=== PATIENT | female | born 1985 | race Caucasian/White ===

== ENCOUNTER 2018-04-25 00:13 | Inpatient (IN) | payer BC, OTHER ==
[2018-04-25] MEDS ORDERED: Sodium Citrate/Citric Acid* 15 ML UDC ONE (07:18)
[2018-04-25] MEDS ORDERED: ceFOXitin 2 GM IVPREMIX* 2 GM/50 ML BAG ONE (07:19)
[2018-04-25] MEDS ORDERED: Morphine PF AMP (0.5MG/ML)* 5 MG/10 ML AMP ONE (08:44)
[2018-04-25] MEDS ORDERED: Bupivacaine-MPF SPINAL* 7.5 MG/ML - 2ML AMP ONE (08:44)
[2018-04-25] MEDS ORDERED: Lidocaine 1%* 5 ML VIAL ONE (08:47)
[2018-04-25] MEDS ORDERED: OXYTOCIN* 10 UNITS/ML 1 ML VIAL ONE (09:26)
[2018-04-25] MEDS ORDERED: EPHEDrine (Pressors)* 50 MG/ML VIAL ONE (09:26)
[2018-04-25] MEDS ORDERED: Atropine 1MG/ML INJ* 1 ML VIAL ONE (09:26)
[2018-04-25] MEDS ORDERED: Phenylephrine INJ* 10 MG/ML 1 ML VIAL (10 MG) ONE (09:39)
[2018-04-25] MEDS ORDERED: Ketorolac INJ* 30 MG/ML 1 ML VIAL ONE (09:41)
[2018-04-25] MEDS ORDERED: Scopolamine 1.5 mg* PATCH TRANSDERM PRN (09:47)
[2018-04-25] MEDS ORDERED: Naloxone* 0.4 MG/ML 1 ML VIAL IV PRN ×2 (09:47→09:50)
[2018-04-25] MEDS ORDERED: Nalbuphine* 10 MG/ML 1 ML VIAL IV PRN (09:47)
[2018-04-25] MEDS ORDERED: Ketorolac INJ* 30 MG/ML 1 ML VIAL IV PRN (09:47)
[2018-04-25] MEDS ORDERED: Ondansetron INJ* 2 MG/ML VIAL IV PRN ×2 (09:47→09:50)
[2018-04-25] MEDS ORDERED: diPHENhydraMINE IV* 50 MG/ML 1 ml VIAL (BENADRYL) IV PRN (09:47)
[2018-04-25] MEDS ORDERED: oxyCODONE/Acetamin 5/325 MG* TAB PO PRN (09:47)
[2018-04-25] MEDS ORDERED: DiMENhydriNATE IV* 50 MG/ML VIAL IV PUSH PRN (09:47)
[2018-04-25] MEDS ORDERED: fentaNYL* 50 MCG/ML 2 ML VIAL (100 MCG VIAL) IV PRN (09:50)
[2018-04-25] MEDS ORDERED: Dibucaine 1% 28.35 GM TUBE PR PRN (11:34)
[2018-04-25] MEDS ORDERED: Zolpidem TAB* 5 MG PO PRN (11:34)
[2018-04-25] MEDS ORDERED: Glycerin ADULT SUPP PR PRN (11:34)
[2018-04-25] MEDS ORDERED: Witch Hazel PAD* JAR TOPICAL PRN (11:34)
[2018-04-25] MEDS: Docusate CAP* 100 MG PO SCH ×2 (14:26→20:09)
[2018-04-25] MEDS: Simethicone TAB* 80 MG TAB.CHEW PO SCH ×3 (14:26→20:09)
--- NOTE | 2018-04-25 16:37 | OP ---
DATE OF OPERATION: 04/25/18 -ROOM #105 DATE OF : 81 SURGEON: Hayley Granados MD. BINDER LOCKSTITCH: Charleen Nath CNM ANESTHESIA: Spinal. PRE-OP DIAGNOSIS: Intrauterine gestation at 39+ weeks gestational age, prior section. POST-OP DIAGNOSIS: Intrauterine gestation at 39+ weeks gestational age, prior section. OPERATIVE PROCEDURE: Repeat lower transverse section. ESTIMATED BLOOD LOSS: 800 mL. FLUIDS: Crystalloid. FINDINGS: Normal-appearing uterus, ovaries, and tubes. Male , weight 8 pounds 4 ounces. COUNTS: All correct. DESCRIPTION OF PROCEDURE: After informed consent, the patient was taken to the operating room where she was given spinal anesthesia that was found to be adequate. She was prepped and draped in the dorsal supine position with a leftward tilt. A Pfannenstiel skin incision was made with a scalpel and carried down to the underlying layer of fascia. The fascia was incised on either side of the midline with the sharp dissection and the fascial incision was extended laterally with the combination of sharp and blunt dissection. The inferior edge of the fascial incision was grasped with Soren clamps, tented up , and dissected down with a combination of sharp and blunt dissection. Then, the superior edge of the fascial incision was grasped with Soren clamps, tented up, and dissected down with the combination of sharp and blunt dissection. The rectus muscles were in the midline and the peritoneum was entered bluntly. The peritoneal incision was extended laterally with the combination of sharp and blunt dissection. The bladder blade was inserted and a transverse incision was made in the lower uterine segment with the scalpel. The incision was extended superiorly and inferiorly with blunt pressure. The 's head was then delivered with fundal pressure followed by the shoulders and the rest of the body. The cord was milked towards the baby and clamped after 1 minute; clamped x2 and cut. The baby was handed to the hydroelectric station operator chief. Cord blood was collected. The placenta was delivered with fundal massage and gentle cord traction. The uterus was exteriorized and covered with a moist lap. The uterus was cleared of clots and debris. It was very boggy at this time and so uterine massage was initiated and the uterine incision was closed with 0 Vicryl in a running locked fashion. After closure of the incision, the uterine tone improved significantly. A second suture was then placed imbricating the first. At this time, there was good hemostasis and the uterus was firm. The abdomen was irrigated and the uterus was placed back into the abdominal cavity. The incision was inspected and good hemostasis was noted once again. The peritoneum was then closed with 3-0 Vicryl in a running unlocked fashion. The fascia was closed with 0 Vicryl in a running unlocked fashion. The subcuticular layer was irrigated with a wet lap. One 3-0 Vicryl suture was placed in the right side of the incision to help bring the skin edges together and the skin was then closed with 4-0 Monocryl in a running subcuticular fashion. The incision was cleaned. Mastisol and Steri-Strips were placed. The dressing was placed, the patient was cleaned, moved to the stretcher and taken to the recovery room in stable condition. [id number]/[facility] #: [id number] LUIS
[2018-04-25] MEDS: Ibuprofen TAB* 600 MG PO PRN (18:43)
[2018-04-26] MEDS ORDERED: oxyCODONE/Acetamin 5/325 MG* TAB PO PRN (01:47)
[2018-04-26 07:00] LABS: ABS Basophils 0 10^3/ul (0-0.2); ABS Eosinophils 0.1 10^3/ul (0-0.6); ABS Lymphocytes 1.3 10^3/ul (1.0-4.8); ABS Neutrophils 8.2 10^3/ul (1.5-7.7); ABS Nucleated RBC 0 10^3/ul; Eosinophil % 0.8 % (0-6); Hematocrit 32 % (35-47); Lymphocyte % 12.2 % (25-47); Mean Corpuscular HGB Conc 35 g/dl (31-36); Mean Corpuscular Hemoglobin 32 pg (27-31); Mean Corpuscular Volume 92 fL (80-97); Mean Platelet Volume 9.9 um3 (7.4-10.4); Nucleated Red Blood Cells % 0; Platelet Count 131 10^3/ul (150-450); Red Blood Count 3.45 10^6/ul (4.00-5.40); Red Cell Distribution Width 14 % (10.5-15); White Blood Count 10.6 10^3/ul (3.5-10.8)
[2018-04-26] MEDS: Ibuprofen TAB* 600 MG PO PRN ×3 (07:50→21:13)
[2018-04-26] MEDS: Simethicone TAB* 80 MG TAB.CHEW PO SCH ×4 (08:30→21:12)
[2018-04-26] MEDS ORDERED: Ferrous Gluconate TAB* 324 MG TAB PO SCH (09:00)
[2018-04-26] MEDS: Docusate CAP* 100 MG PO SCH ×3 (09:00→21:13)
[2018-04-26] MEDS: Acetaminophen TAB* 325 MG PO PRN (16:57)
[2018-04-26] MEDS: oxyCODONE/Acetamin 5/325 MG* TAB PO PRN (22:11)
[2018-04-27] MEDS: Ibuprofen TAB* 600 MG PO PRN ×3 (03:01→20:04)
[2018-04-27] MEDS: Simethicone TAB* 80 MG TAB.CHEW PO SCH ×4 (08:11→20:04)
[2018-04-27] MEDS: Docusate CAP* 100 MG PO SCH ×3 (08:11→20:04)
[2018-04-27] MEDS: Acetaminophen TAB* 325 MG PO PRN (11:02)
[2018-04-27] MEDS: oxyCODONE/Acetamin 5/325 MG* TAB PO PRN ×2 (14:18→22:44)
[2018-04-28] MEDS: Ibuprofen TAB* 600 MG PO PRN ×2 (02:27→09:03)
[2018-04-28 07:23] VITALS: BP 132/62
[2018-04-28] MEDS: oxyCODONE/Acetamin 5/325 MG* TAB PO PRN (07:41)
[2018-04-28] MEDS ORDERED: Ondansetron TAB* 4 MG PO ONE (08:44)
[2018-04-28] MEDS ORDERED: Ondansetron ODT TAB* 4 MG ONE (09:00)
[2018-04-28] MEDS: Docusate CAP* 100 MG PO SCH (09:02)
[2018-04-28] MEDS: Simethicone TAB* 80 MG TAB.CHEW PO SCH (09:02)
[2018-04-28] MEDS ORDERED: Scopolamine PATCH Remove* 1 NOTE MISC PATCH OFF PRN (09:48)
== END 2018-04-28 09:15 | disposition home or self-care (01) | DRG 540 ==
LOC: MCHOB 06:05
PROVIDERS: ADMIT Obstetrics & Gynecology; ATTEND Obstetrics & Gynecology
PROC: 10D00Z1 Extraction of Products of Conception, Low, Open Approach (ICD-10-PCS; principal; 2018-04-25 07:45)
DX: O34.211 Maternal care for low transverse scar from previous cesarean delivery (principal); O99.413 Diseases of the circulatory system complicating pregnancy, third trimester; I35.0 Nonrheumatic aortic (valve) stenosis; Z3A.39 39 weeks gestation of pregnancy; Z37.0 Single live birth
CPT/HCPCS: 36415; 85025; 93306; A9270-GY; J0461; J0694; J1240; J1885; J2300; J2590